=== PATIENT | female | born 1945 | race Hispanic/Latino ===

== ENCOUNTER 2018-04-06 06:43 | Emergency (ER) | payer OTHER ==
--- NOTE | 2018-04-06 08:05 | RAD REPORT ---
EXAM DESCRIPTION: CT - Head Brain Wo Cont - 04/06/2018 7:52 am CLINICAL HISTORY: Headache COMPARISON: March 2017 TECHNIQUE: Computed axial tomography of the head was obtained. IV contrast was not requested. Preliminary report was generated by virtual radiologic injury prior to dictation All CT scans are performed using dose optimization technique as appropriate and may include automated exposure control or mA/KV adjustment according to patient size. FINDINGS: An intracranial bleed is not seen . The ventricles are normal in caliber. No extra-axial fluid collection is noted. Fluid within the sinuses/ mastoids is not seen. IMPRESSION: No acute intracranial abnormality is seen. If patient's symptoms persist MRI of the bra in would be recommended.
--- NOTE | 2018-04-06 08:22 | ER ---
Nurse's Notes [facility] Name: Priyanka Tinoco Age: 72 yrs Sex: Female : 1945 Arrival Date: 04/06/2018 Time: 06:46 Bed 19 Private MD: Diagnosis: Chronic pharyngitis;Headache;Viral infection, unspecified Presentation: 04/06 07:18 Presenting complaint: Patient states: sore throat, kaley. ear pain, and sinus headache em for about 2 weeks, finished amoxicillin on but today is worse. Transition of care: patient was not received from another setting of care. Onset of symptoms was March 21, 2018. Risk Assessment: Do you want to hurt yourself or someone else? Patient reports no desire to harm self or others. Initial Sepsis Screen: Does the patient meet any 2 criteria? No. Patient's initial sepsis screen is negative. Does the patient have a suspected source of infection? No. Patient's initial sepsis screen is negative. Care prior to arrival: None. 07:18 Method Of Arrival: Ambulatory em 07:18 Acuity: ANA MARIA 4 hb Triage Assessment: 07:20 General: Appears in no apparent distress. uncomfortable, Behavior is calm, cooperative. em Pain: Complains of pain in throat, kaley. ears, head. EENT: Nares are clear Oral mucosa is moist. Throat is clear is pink. Historical: - Allergies: 07:20 Reglan; em 07:20 Iodinated Contrast Media - IV Dye; em - PMHx: 07:20 Hypertension; acid reflux; Anxiety; Arthritis; Migraines; em - PSHx: 07:20 Cholecystectomy; Hernia repair; em - Immunization history:: Adult Immunizations up to date. - Social history:: Smoking status: Patient/guardian denies using tobacco. - Ebola Screening: : Patient negative for fever greater than or equal to 101.5 degrees Fahrenheit, and additional compatible Ebola Virus Disease symptoms Patient denies exposure to infectious person Patient denies travel to an Ebola-affected area in the 21 days before illness onset No symptoms or risks identified at this time. Screenin:22 Abuse screen: Denies threats or abuse. Nutritional screening: No deficits noted. em Tuberculosis screening: No symptoms or risk factors identified. Fall Risk None identified. Assessment: 07:20 General: Appears in no apparent distress. uncomfortable, Behavior is calm, cooperative, em Denies fever. Pain: Complains of pain in head, kaley. ears, throat. Neuro: Level of Consciousness is awake, alert, obeys commands, Oriented to person, place, time, situation, Reports headache Denies weakness blurred vision dizziness. Cardiovascular: Denies chest pain, Heart tones S1 S2 present Capillary refill < 3 seconds Patient's skin is warm and dry. Respiratory: Airway is patent Respiratory effort is even, unlabored, Respiratory pattern is regular, symmetrical, Breath sounds are clear bilaterally. Denies cough, shortness of breath. GI: Abdomen is round non-distended, Patient currently denies nausea, vomiting. : No signs and/or symptoms were reported regarding the genitourinary system. EENT: Nares are clear Oral mucosa is moist. Throat is clear is pink. Derm: Skin is intact, Skin is pink, warm \T\ dry. Musculoskeletal: Capillary refill < 3 seconds, Range of motion: intact in all extremities. 07:25 Reassessment: I agree with previous assessment. hb 07:46 Reassessment: Patient appears in no apparent distress at this time. pt wheeled to CT em dept. via wheelchair. 08:00 Reassessment: Patient appears in no apparent distress at this time. Patient and/or em family updated on plan of care and expected duration. Pain level reassessed. Patient is alert, oriented x 3, equal unlabored respirations, skin warm/dry/pink. Vital Signs: 07:20 BP 128 / 81; Pulse 58; Resp 16; Temp 98.9(O); Pulse Ox 97% on R/A; Weight 89.81 kg; em Height 4 ft. 11 in. (149.86 cm); Pain 8/10; 08:00 BP 131 / 61; Pulse 52; Resp 17; Pulse Ox 100% on R/A; em 07:20 Body Mass Index 39.99 (89.81 kg, 149.86 cm) em ED Course: 06:46 Patient arrived in ED. al2 07:09 Pablo Dupont LVN is Primary Nurse. em 07:09 Pete Walls MD is Attending Physician. kdr 07:20 Arm band placed on. em 07:22 Patient has correct armband on for positive identification. Bed in low position. Call em light in reach. Adult w/ patient. 07:36 Triage completed. 07:52 CT Head Brain wo Cont In Process Unspecified. EDMS 08:32 No provider procedures requiring assistance completed. Patient did not have IV access em during this emergency room visit. Administered Medications: 08:32 Drug: traMADol 50 mg Route: PO; em 08:32 Follow up: Response: Medication administered at discharge. em Outcome: 08:21 Discharge ordered by . kdr 08:32 Discharged to home ambulatory, with family. em 08:32 Condition: good 08:32 Discharge instructions given to patient, family, Instructed on discharge instructions, follow up and referral plans. medication usage, Demonstrated understanding of instructions, follow-up care, medications, Prescriptions given X 1. 08:36 Patient left the ED. em Signatures: Dispatcher [employer] EDMS Pete Walls MD MD kdr Pablo Dupont, VALUATION MANAGER VALUATION MANAGER em Nevin Vargas, RN RN haris Ambrocio, Sofy martell2
--- NOTE | 2018-04-06 08:22 | EDPHYS ---
Physician Documentation [facility] Name: Priyanka Tinoco Age: 72 yrs Sex: Female : 1945 Arrival Date: 04/06/2018 Time: 06:46 Bed 19 Private MD: ED Physician Pete Walls HPI: 04/06 07:19 This 72 yrs old Female presents to ER via Ambulatory with complaints of Sore kdr Throat, Headache, Ear Pain. 07:19 The patient presents with sore throat, dysphagia, of both solids and liquids. The kdr patient describes throat pain as intermittent, raw. Onset: The symptoms/episode began/occurred gradually, 2 week(s) ago. Severity of symptoms: At their worst the symptoms were mild, in the emergency department the symptoms are unchanged. Modifying factors: The symptoms are alleviated by nothing, the symptoms are aggravated by fluids, foods, swallowing. Associated signs and symptoms: Pertinent positives: cough, earache, headache, Pertinent negatives chest pain, chills, fever, rhinorrhea, vomiting. The patient has not experienced similar symptoms in the past. The patient has been recently seen by a physician: Dr. Sexton The patient has been on Amoxicillin for two weeks - no longer - without improvement. Historical: - Allergies: 07:20 Reglan; em 07:20 Iodinated Contrast Media - IV Dye; em - PMHx: 07:20 Hypertension; acid reflux; Anxiety; Arthritis; Migraines; em - PSHx: 07:20 Cholecystectomy; Hernia repair; em - Immunization history:: Adult Immunizations up to date. - Social history:: Smoking status: Patient/guardian denies using tobacco. - Ebola Screening: : Patient negative for fever greater than or equal to 101.5 degrees Fahrenheit, and additional compatible Ebola Virus Disease symptoms Patient denies exposure to infectious person Patient denies travel to an Ebola-affected area in the 21 days before illness onset No symptoms or risks identified at this time. ROS: 07:19 Constitutional: Negative for fever, chills, and weight loss, Eyes: Negative for injury, kdr pain, redness, and discharge, Neck: Negative for injury, pain, and swelling, Cardiovascular: Negative for chest pain, palpitations, and edema, Abdomen/GI: Negative for abdominal pain, nausea, vomiting, diarrhea, and constipation, Back: Negative for injury and pain, : Negative for injury, bleeding, discharge, and swelling, MS/Extremity: Negative for injury and deformity, Skin: Negative for injury, rash, and discoloration, Neuro: Negative for headache, weakness, numbness, tingling, and seizure activity. Psych: Negative for depression, anxiety, suicide ideation, homicidal ideation, and hallucinations, Allergy/Immunology: Negative for hives, rash, and allergies, Endocrine: Negative for neck swelling, polydipsia, polyuria, polyphagia, and marked weight changes, Hematologic/Lymphatic: Negative for swollen nodes, abnormal bleeding, and unusual bruising. 07:19 ENT: Positive for ear pain, Feels like I have water in my left ear, Negative for injury or acute deformity, Gum pain hearing loss, tinnitus, nasal discharge, rhinorrhea. 07:19 Respiratory: Positive for cough, with white sputum, Negative for dyspnea on exertion, hemoptysis, orthopnea, pleurisy, shortness of breath, wheezing. Exam: 07:19 Constitutional: This is a well developed, well nourished patient who is awake, alert, kdr and in no acute distress. Head/Face: Normocephalic, atraumatic. Eyes: Pupils equal round and reactive to light, extra-ocular motions intact. Lids and lashes normal. Conjunctiva and sclera are non-icteric and not injected. Cornea within normal limits. Periorbital areas with no swelling, redness, or edema. ENT: Nares patent. No nasal discharge, no septal abnormalities noted. Tympanic membranes are normal and external auditory canals are clear. Oropharynx with no redness, swelling, or masses, exudates, or evidence of obstruction, uvula midline. Mucous membranes moist. Neck: Trachea midline, no thyromegaly or masses palpated, and no cervical lymphadenopathy. Supple, full range of motion without nuchal rigidity, or vertebral point tenderness. No Meningismus. Chest/axilla: Normal chest wall appearance and motion. Nontender with no deformity. No lesions are appreciated. Cardiovascular: Regular rate and rhythm with a normal S1 and S2. No gallops, murmurs, or rubs. Normal PMI, no JVD. No pulse deficits. Respiratory: Lungs have equal breath sounds bilaterally, clear to auscultation and percussion. No rales, rhonchi or wheezes noted. No increased work of breathing, no retractions or nasal flaring. Abdomen/GI: Soft, non-tender, with normal bowel sounds. No distension or tympany. No guarding or rebound. No evidence of tenderness throughout. Back: No spinal tenderness. No costovertebral tenderness. Full range of motion. Skin: Warm, dry with normal turgor. Normal color with no rashes, no lesions, and no evidence of cellulitis. MS/ Extremity: Pulses equal, no cyanosis. Neurovascular intact. Full, normal range of motion. Neuro: Awake and alert, GCS 15, oriented to person, place, time, and situation. Cranial nerves II-XII grossly intact. Motor strength 5/5 in all extremities. Sensory grossly intact. Cerebellar exam normal. Normal gait. Psych: Awake, alert, with orientation to person, place and time. Behavior, mood, and affect are within normal limits. Vital Signs: 07:20 BP 128 / 81; Pulse 58; Resp 16; Temp 98.9(O); Pulse Ox 97% on R/A; Weight 89.81 kg; em Height 4 ft. 11 in. (149.86 cm); Pain 8/10; 08:00 BP 131 / 61; Pulse 52; Resp 17; Pulse Ox 100% on R/A; em 07:20 Body Mass Index 39.99 (89.81 kg, 149.86 cm) em MDM: 07:19 Data reviewed: vital signs, nurses notes. kdr 08:21 Patient medically screened. kdr 04/06 07:19 Order name: Flu; Complete Time: 08:20 kdr 04/06 07:19 Order name: Strep; Complete Time: 08:20 kdr 04/06 07:24 Order name: CT Head Brain wo Cont; Complete Time: 08:20 kdr 04/06 08:07 Order name: Throat Culture EDMS Administered Medications: 08:32 Drug: traMADol 50 mg Route: PO; em 08:32 Follow up: Response: Medication administered at discharge. em Disposition: 04/06/18 08:21 Discharged to Home. Impression: Chronic pharyngitis, Headache, Viral infection, unspecified. - Condition is Stable. - Discharge Instructions: General Headache Without Cause, Pharyngitis, [id number], Viral Respiratory Infection, [id number]. - Prescriptions for Tramadol 50 mg Oral Tablet - take 1 tablet by ORAL route every 8 hours as needed; 12 tablet. - Medication Reconciliation Form, Thank You Letter form. - Follow up: Private Physician; When: 2 - 3 days; Reason: If symptoms return, Further diagnostic work-up, Recheck today's complaints, Continuance of care, Re-evaluation by your physician. - Problem is an ongoing problem. - Symptoms are unchanged. Signatures: Dispatcher [employer] Pete Tan MD MD kdr Munoz, Edgar, JEWEL BEARING BROACHER JEWEL BEARING BROACHER em Corrections: (The following items were deleted from the chart) 08:36 08:21 04/06/2018 08:21 Discharged to Home. Impression: Chronic pharyngitis; Headache; em Viral infection, unspecified. Condition is Stable. Forms are Medication Reconciliation Form, Thank You Letter, Antibiotic Education, Prescription Opioid Use. Follow up: Private Physician; When: 2 - 3 days; Reason: If symptoms return, Further diagnostic work-up, Recheck today's complaints, Continuance of care, Re-evaluation by your physician. Problem is an ongoing problem. Symptoms are unchanged. kdr
[2018-04-06] MEDS ORDERED: TRAMADOL HCL 50 MG TAB ONE (08:34)
[2018-04-06 08:40] VITALS: TEMP 98.9
[2018-04-06 08:41] VITALS: BP 131/61; O2SAT 100
== END 2018-04-06 08:36 | disposition home or self-care (01) ==
LOC: ER 06:43
DX: J31.2 Chronic pharyngitis (principal); B34.9 Viral infection, unspecified; I10 Essential (primary) hypertension; Z88.8 Allergy status to other drugs, medicaments and biological substances; Z91.041 Radiographic dye allergy status
CPT/HCPCS: 70450; 87070; 87081; 87804; 99283

== ENCOUNTER 2018-05-23 10:18 | Emergency (ER) | payer OTHER ==
[2018-05-23] MEDS ORDERED: LEVALBUTEROL 1.25 MG/3 ML NEB ONE (11:15)
[2018-05-23 11:23] LABS: Absolute Lymphocytes (CBC) 1.4 K/uL (0.7-4.9); Absolute Monocytes 0.4 K/uL (0.1-1.3); Absolute Neutrophil 4.3 K/uL (1.8-8.0); Basophils % 1.1 % (0-1.3); Eosinophils % 0.6 % (0-4.4); Hematocrit 48.3 % (36.0-45.0); Lymphocytes % 22.7 % (15.3-44.8); RBC Red Blood Cell Count 5.57 M/uL (3.86-4.86)
[2018-05-23 11:28] LABS: Protime INR 1.02
[2018-05-23 11:35] LABS: ALT/SGPT 33 U/L (12-78); AST/SGOT 28 U/L (15-37); Albumin 4.1 g/dL (3.4-5.0); Alkaline Phosphatase 108 U/L (45-117); BUN Blood Urea Nitrogen 17 mg/dL (7-18); Bicarbonate 23 mmol/L (21-32); Bilirubin Direct 0.1 mg/dL (0-0.2); Bilirubin Total 0.5 mg/dL (0.2-1.0); Glucose Level 93 mg/dL (74-106); Magnesium 2.3 mg/dL (1.8-2.4); NT PRO-BNP 86 pg/mL (<125); Potassium 4.5 mmol/L (3.5-5.1); Protein, Total 8.3 g/dL (6.4-8.2); Sodium Level 130 mmol/L (136-145); Troponin (Emerg Dept Use Only) < 0.02 ng/mL (0.0-0.045)
[2018-05-23 12:54] LABS: Urine Blood TRACE (NEG); Urine Glucose NEGATIVE (NEG); Urine Protein NEGATIVE (NEG)
--- NOTE | 2018-05-23 12:59 | RAD REPORT ---
EXAM DESCRIPTION: Tawnya Denton (2 Views)05/23/2018 12:52 pm CLINICAL HISTORY: Chest pain COMPARISON: 2017 FINDINGS: The lungs appear clear of acute infiltrate. The heart is normal size IMPRESSION: No acute abnormalities displayed
--- NOTE | 2018-05-23 13:39 | EDPHYS ---
Physician Documentation [facility] Name: Priyanka Tinoco Age: 72 yrs Sex: Female : 1945 Arrival Date: 05/23/2018 Time: 10:19 Bed 2 Private MD: Lisa Nielson ED Physician Pete Walls HPI: 05/23 10:50 This 72 yrs old Female presents to ER via Wheelchair with complaints of jmm Breathing Difficulty. 10:50 The patient has shortness of breath at rest. Onset: The symptoms/episode began/occurred jmm gradually, 1 week(s) ago. Duration: The symptoms are intermittent. This is a 72 year old female with a history of HTN, anxiety, migraine headaches that presents to the ED with 1 week of cough, congestion, sore throat, ear ache. Patient is currently taking clarithromycin with no relief of symptoms. Patient complains of chest pain with cough. . Historical: - Allergies: 10:28 Iodinated Contrast Media - IV Dye; aj1 10:28 Reglan; aj1 - Home Meds: 10:28 amlodipine 5 mg tab 1 tab once daily [Active]; buspirone 15 mg Oral tab take 1 1/2 tabs aj1 twice a day [Active]; lisinopril 10 mg Oral tab 1 tab once daily [Active]; naproxen 500 mg Oral tab 1 tab 2 times per day [Active]; pantoprazole 40 mg Oral TbEC 1 tab once daily [Active]; topiramate 25 mg Oral CSpX 3 cap at bedtime [Active]; Zofran Oral [Active]; clarithromycin 500 mg Oral tab 1 tab every 12 hours [Active]; gabapentin oral oral [Active]; 10:32 Cipro 500 mg Oral tab 1 tab 2 times per day [Active]; Flagyl 500 mg Oral tab 1 tab 3 tw2 times per day [Active]; - PMHx: 10:28 acid reflux; Anxiety; Arthritis; Hypertension; Migraines; aj1 - PSHx: 10:32 Cholecystectomy; Hernia repair; tw2 - Immunization history:: Flu vaccine is up to date. - Social history:: Smoking status: Patient/guardian denies using tobacco. - Ebola Screening: : Patient denies travel to an Ebola-affected area in the 21 days before illness onset. ROS: 10:50 Constitutional: Negative for fever, chills, and weight loss. [facility] 10[facility]50 Cardiovascular: Positive for chest pain. 10:50 Respiratory: Positive for cough. 10:50 Neuro: Positive for headache. 10:50 All other systems are negative. Exam: 10:50 Constitutional: This is a well developed, well nourished patient who is awake, alert, jmm and in no acute distress. Head/Face: atraumatic. Eyes: EOMI, no conjunctival erythema appreciated ENT: Moist Mucus Membranes Neck: Trachea midline, Supple Chest/axilla: Normal chest wall appearance and motion. 10:50 Abdomen/GI: Non distended, soft Back: Normal ROM Skin: General appearance color normal MS/ Extremity: Moves all extremities, no obvious deformities appreciated, no edema noted to the lower extremities Neuro: Awake and alert, normal gait Psych: Behavior is normal, Mood is normal, Patient is cooperative and pleasant 10:50 Cardiovascular: Rate: normal, Rhythm: regular, Pulses: no pulse deficits are appreciated. 10:50 Respiratory: the patient does not display signs of respiratory distress, Respirations: normal, Breath sounds: are clear throughout. Vital Signs: 10:28 BP 111 / 91; Pulse 60; Resp 18; Temp 97.0; Pulse Ox 100% on R/A; Weight 86.18 kg; aj1 Height 4 ft. 11 in. (149.86 cm) (R); Pain 10/10; 11:40 BP 142 / 68; Pulse 74; Resp 17; Pulse Ox 96% on R/A; tw2 12:40 BP 128 / 89; Pulse 63; Resp 17; Pulse Ox 97% on R/A; tw2 13:57 BP 112 / 59; Pulse 70; Resp 17; Pulse Ox 97% on R/A; tw2 10:28 Body Mass Index 38.37 (86.18 kg, 149.86 cm) aj1 MDM: 10:37 [facility] screened. [facility] 13:33 Data reviewed: vital signs, nurses notes, lab test result(s), EKG, radiologic studies, [facility] plain films. 13:41 Counseling: I had a detailed discussion with the patient and/or guardian regarding: the [facility] historical points, exam findings, and any diagnostic results supporting the discharge/admit diagnosis, lab results, radiology results, the need for outpatient follow up, to return to the emergency department if symptoms worsen or persist or if there are any questions or concerns that arise at home. 13:41 ED course: Symptoms relieved in the ED with beta agonist. Labs and imaging [facility]. Patient is alert, non toxic in appearance, and shows no signs of resp distress in the ED. Patient advised to follow up with pcp. Given strict return precautions. Chest pain appears most likely chest wall in nature. I do not currently suspect ACS at this time. . 05/23 10:45 Order name: Urine Dipstick--Ancillary (enter results); Complete Time: 13:01 05/23 10:46 Order name: Basic Metabolic Panel; Complete Time: 11:48 [facility] 05/23 10:46 Order name: CBC with Diff; Complete Time: 11:48 [facility] 05/23 10:46 Order name: LFT's; Complete Time: 11:48 [facility] 05/23 10:46 Order name: Magnesium; Complete Time: 11:48 [facility] 05/23 10:46 Order name: NT PRO-BNP; Complete Time: 11:48 [facility] 05/23 10:46 Order name: PT-INR; Complete Time: 11:48 [facility] 05/23 10:46 Order name: Troponin (emerg Dept Use Only); Complete Time: 11:48 [facility] 05/23 10:46 Order name: Procalcitonin; Complete Time: 12:03 [facility] 05/23 10:46 Order name: Lactate; Complete Time: 11:48 [facility] 05/23 10:46 Order name: Influenza Screen (a \T\ B); Complete Time: 11:48 [facility] 05/23 10:46 Order name: Chest Pa And Lat (2 Views) XRAY; Complete Time: 13:01 [facility] 05/23 10:46 Order name: EKG; Complete Time: 10:48 [facility] 05/23 10:46 Order name: Cardiac monitoring; Complete Time: 11:17 [facility] 05/23 10:46 Order name: EKG - Nurse/Tech; Complete Time: 11:17 [facility] 05/23 10:46 Order name: Labs collected and sent; Complete Time: 11:17 [facility] 05/23 10:46 Order name: O2 Per Protocol; Complete Time: 11:18 [facility] 05/23 10:46 Order name: O2 Sat Monitoring; Complete Time: 11:17 [facility] Administered Medications: 11:12 Drug: Xopenex (3) 1.25 mg Route: Inhalation; tw2 13:34 Drug: Tylenol 650 mg Route: PO; sg 13:41 Follow up: Response: No adverse reaction sg 13:35 Not Given (Duplicate Order): Decadron 10 mg IM once sg 13:41 Drug: Decadron 10 mg {Note: PO in juice.} Route: IM; Site: Other; sg 13:59 Follow up: Response: No adverse reaction tw2 Disposition: 05/23/18 13:38 Discharged to Home. Impression: Acute bronchitis. - Condition is Stable. - Discharge Instructions: Acute Bronchitis, Adult. - Prescriptions for Albuterol Sulfate 90 mcg/actuation - inhale 1-2 puff by INHALATION route every 4-6 hours; 1 Inhaler. - Medication Reconciliation Form, Thank You Letter, Antibiotic Education, Prescription Opioid Use form. - Follow up: Lisa Nielson MD; When: 1 - 2 days; Reason: Recheck today's complaints, Continuance of care, Re-evaluation by your physician. Addendum: 06/03/2018 07:24 Co-signature as Attending Physician, Pete Walls MD I agree with the assessment and k dr plan of care. Signatures: Dispatcher [employer] EDMS Shania Bernal RN RN aj1 John Kwon RN RN sg Rittger, Kevin, MD MD [facility] Geoff Retana PA PA jmm Wise, Tara RN RN tw2 Corrections: (The following items were deleted from the chart) 05/23 14:00 13:38 05/23/2018 13:38 Discharged to Home. Impression: Acute bronchitis. Condition is tw2 Stable. Forms are Medication Reconciliation Form, Thank You Letter, Antibiotic Education, Prescription Opioid Use. Follow up: Lisa Nielson; When: 1 - 2 days; Reason: Recheck today's complaints, Continuance of care, Re-evaluation by your physician. jose
--- NOTE | 2018-05-23 13:39 | ER ---
Nurse's Notes [facility] Name: Priyanka Tinoco Age: 72 yrs Sex: Female : 1945 Arrival Date: 05/23/2018 Time: 10:19 Bed 2 Private MD: Lisa Nielson Diagnosis: Acute bronchitis Presentation: 05/23 10:24 Presenting complaint: Patient states: Chest pain, back pain, shortness of breath, aj1 cough, congestion, bilateral ear pain, and headache. Reports the chest pain started this morning, but the other pains she had had for the past week. Patient reports that she is taking clarithromycin for strep throat and a URI. Transition of care: patient was not received from another setting of care. Onset of symptoms was May 23, 2018. Risk Assessment: Do you want to hurt yourself or someone else? Patient reports no desire to harm self or others. Initial Sepsis Screen: Does the patient meet any 2 criteria? No. Patient's initial sepsis screen is negative. Does the patient have a suspected source of infection? Yes: Productive cough/pneumonia. Care prior to arrival: None. 10:24 Method Of Arrival: Wheelchair aj1 10:24 Acuity: ANA MARIA 3 aj1 Triage Assessment: 10:28 General: Appears in no apparent distress. uncomfortable, Behavior is calm, cooperative, aj1 appropriate for age. Pain: Complains of pain in face, right ear, left ear, back and chest. Pain: Pain currently is 10 out of 10 on a pain scale. Neuro: Level of Consciousness is awake, alert, obeys commands. Cardiovascular: Patient's skin is warm and dry. Respiratory: Reports shortness of breath Airway is patent Respiratory effort is even, unlabored, Respiratory pattern is regular, symmetrical, Onset: The symptoms/episode began/occurred today. 11:24 Respiratory: the patient has mild shortness of breath. tw2 Historical: - Allergies: 10:28 Iodinated Contrast Media - IV Dye; aj1 10:28 Reglan; aj1 - Home Meds: 10:28 amlodipine 5 mg tab 1 tab once daily [Active]; buspirone 15 mg Oral tab take 1 1/2 tabs aj1 twice a day [Active]; lisinopril 10 mg Oral tab 1 tab once daily [Active]; naproxen 500 mg Oral tab 1 tab 2 times per day [Active]; pantoprazole 40 mg Oral TbEC 1 tab once daily [Active]; topiramate 25 mg Oral CSpX 3 cap at bedtime [Active]; Zofran Oral [Active]; clarithromycin 500 mg Oral tab 1 tab every 12 hours [Active]; gabapentin oral oral [Active]; 10:32 Cipro 500 mg Oral tab 1 tab 2 times per day [Active]; Flagyl 500 mg Oral tab 1 tab 3 tw2 times per day [Active]; - PMHx: 10:28 acid reflux; Anxiety; Arthritis; Hypertension; Migraines; aj1 - PSHx: 10:32 Cholecystectomy; Hernia repair; tw2 - Immunization history:: Flu vaccine is up to date. - Social history:: Smoking status: Patient/guardian denies using tobacco. - Ebola Screening: : Patient denies travel to an Ebola-affected area in the 21 days before illness onset. Screenin:24 Abuse screen: Denies threats or abuse. Nutritional screening: No deficits noted. tw2 Tuberculosis screening: No symptoms or risk factors identified. Fall Risk None identified. Assessment: 10:35 General: Appears in no apparent distress. obese, Behavior is calm, cooperative, tw2 appropriate for age. Pain: Denies pain. Neuro: Level of Consciousness is awake, alert, obeys commands, Oriented to person, place, time, situation. Cardiovascular: Heart tones S1 S2 Capillary refill < 3 seconds Patient's skin is warm and dry. Rhythm is regular. Respiratory: Reports shortness of breath cough that is Airway is patent Respiratory effort is even, unlabored, Respiratory pattern is regular, symmetrical, Breath sounds are clear bilaterally. GI: No signs and/or symptoms were reported involving the gastrointestinal system. Abdomen is round non-distended, obese, Bowel sounds present X 4 quads. : No signs and/or symptoms were reported regarding the genitourinary system. EENT: Reports nasal congestion nasal discharge pain in left ear and right ear. Derm: No signs and/or symptoms reported regarding the dermatologic system. Musculoskeletal: Range of motion:. 11:40 Reassessment: Patient appears in no apparent distress at this time. Patient and/or tw2 family updated on plan of care and expected duration. Pain level reassessed. Patient is alert, oriented x 3, equal unlabored respirations, skin warm/dry/pink. 12:07 Reassessment: Pt ambulated to bathroom with steady gait with assistance from family. hb Assisted back to bed, bed locked in low position, call light within reach. 12:40 Reassessment: Patient appears in no apparent distress at this time. Patient and/or tw2 family updated on plan of care and expected duration. Pain level reassessed. Patient is alert, oriented x 3, equal unlabored respirations, skin warm/dry/pink. 13:58 Reassessment: Patient appears in no apparent distress at this time. Patient and/or tw2 family updated on plan of care and expected duration. Pain level reassessed. Patient is alert, oriented x 3, equal unlabored respirations, skin warm/dry/pink. Patient states feeling better. Vital Signs: 10:28 BP 111 / 91; Pulse 60; Resp 18; Temp 97.0; Pulse Ox 100% on R/A; Weight 86.18 kg; aj1 Height 4 ft. 11 in. (149.86 cm) (R); Pain 10/10; 11:40 BP 142 / 68; Pulse 74; Resp 17; Pulse Ox 96% on R/A; tw2 12:40 BP 128 / 89; Pulse 63; Resp 17; Pulse Ox 97% on R/A; tw2 13:57 BP 112 / 59; Pulse 70; Resp 17; Pulse Ox 97% on R/A; tw2 10:28 Body Mass Index 38.37 (86.18 kg, 149.86 cm) aj1 ED Course: 10:19 Patient arrived in ED. sb2 10:22 Lisa Nielson MD is Private Physician. sb2 10:27 Triage completed. aj1 10:28 Arm band placed on Patient placed in an exam room. aj1 10:30 Placed in gown. Bed in low position. Adult w/ patient. monitoring manager on. Pulse ox on. tw2 NIBP on. Warm blanket given. 10:31 Jennifer Palacios RN is Primary Nurse. tw2 10:32 Geoff Retana PA is PHCP. [facility] 10:32 Pete Walls MD is Attending Physician. m 10:53 EKG done, by respiratory therapy technician. reviewed by Geoff ROSALES. at1 11:18 Basic Metabolic Panel Sent. ag 11:18 CBC with Diff Sent. ag 11:18 LFT's Sent. ag 11:18 Magnesium Sent. ag 11:18 NT PRO-BNP Sent. ag 11:18 PT-INR Sent. ag 11:18 Lactate Sent. ag 11:18 Procalcitonin Sent. ag 11:18 Influenza Screen (a \T\ B) Sent. ag 11:23 Missed attempt(s): 22 gauge in left antecubital area. Bleeding controlled, band aid ag applied, catheter tip intact. 11:23 Missed attempt(s): 22 gauge in right antecubital area. blood collected and sent. ag Bleeding controlled, band aid applied, catheter tip intact. 12:53 Chest Pa And Lat (2 Views) XRAY In Process Unspecified. EDMS 13:38 Lisa Nielson MD is Referral Physician. [facility] 13:58 No provider procedures requiring assistance completed. Patient did not have IV access tw2 during this emergency room visit. Administered Medications: 11:12 Drug: Xopenex (3) 1.25 mg Route: Inhalation; tw2 13:34 Drug: Tylenol 650 mg Route: PO; sg 13:41 Follow up: Response: No adverse reaction sg 13:35 Not Given (Duplicate Order): Decadron 10 mg IM once sg 13:41 Drug: Decadron 10 mg {Note: PO in juice.} Route: IM; Site: Other; sg 13:59 Follow up: Response: No adverse reaction tw2 Outcome: 13:38 Discharge ordered by MD. [facility] 13:59 Discharged to home via wheelchair, with family. tw2 13:59 Condition: stable 13:59 Discharge instructions given to patient, family, Instructed on discharge instructions, follow up and referral plans. medication usage, Demonstrated understanding of instructions, follow-up care, medications, Prescriptions given X 1. 14:00 Patient left the ED. tw2 Signatures: Dispatcher [employer] EDMS Shania Bernal RN RN aj1 John Kwon RN RN Geoff Trujillo PA PA Gifty Foster, psych assistant EKG Tat1 Arsh, Samantha ag Nevin Vargas RN RN hb Wise, Tara, RN RN tw2 Zakia Holloway sb2 Corrections: (The following items were deleted from the chart) 10:27 10:24 Presenting complaint: Patient states: Chest pain, back pain, shortness of breath, aj1 bilateral ear pain, and headache. Reports the chest pain started this morning, but the other pains she had had for the past week. Patient reports that she is taking clarithromycin for strep throat and a URI. aj1
[2018-05-23] MEDS ORDERED: ACETAMINOPHEN 325 MG TABLET ONE (13:41)
[2018-05-23] MEDS ORDERED: DEXAMETHASONE 10 MG/ML VIAL ONE (13:46)
[2018-05-23 14:05] VITALS: TEMP 97
[2018-05-23 14:08] VITALS: O2SAT 97
[2018-05-23 14:10] VITALS: BP 112/59
--- NOTE | 2018-05-24 07:02 | EKG ---
Test Date: 2018-05-23 Test Time: 10:42:53 Civil Structural Engineer: ABIMAEL MEASUREMENT RESULTS: Intervals: Rate: 63 MO: 140 QRSD: 84 QT: 424 QTc: 433 [place]: P: 27 MO: 140 QRS: -23 T: 67 INTERPRETIVE STATEMENTS: Normal sinus rhythm with sinus arrhythmia Normal ECG Compared to ECG 03/18/2017 06:50:14 Sinus bradycardia no longer present T-wave abnormality no longer present Electronically Signed On 05-24-18 06:53:04 HR BUSINESS PARTNER CONSULTANT by Felipe Ribera
== END 2018-05-23 14:00 | disposition home or self-care (01) ==
LOC: ER 10:18
DX: J20.9 Acute bronchitis, unspecified (principal); I10 Essential (primary) hypertension; F41.9 Anxiety disorder, unspecified; Z88.8 Allergy status to other drugs, medicaments and biological substances; Z91.041 Radiographic dye allergy status
CPT/HCPCS: 36415; 71046; 80048; 80076; 81003; 83605; 83735; 83880; 84145; 84484; 85025; 85610; 87804 ×2; 93005; 96372; 99285; J1100

== ENCOUNTER 2018-05-29 09:40 | Emergency (ER) | payer OTHER ==
--- NOTE | 2018-05-29 12:43 | ER ---
Nurse's Notes [facility] Name: Priyanka Tinoco Age: 72 yrs Sex: Female : 1945 Arrival Date: 05/29/2018 Time: 09:43 Bed 25 Private MD: Lisa Nielson Diagnosis: Allergic rhinitis, unspecified Presentation: 05/29 10:24 Presenting complaint: Patient states: "I have a bad headache, pressure in my temples aj1 and in my ears, a cough, and congestion. My ears are all clogged up. I can't breathe right" Denies fever. Reports that she has been feeling this way for the past week. Patient has not followed up with her PHCP since being seen here. Transition of care: patient was not received from another setting of care. Onset of symptoms was May 2018. Risk Assessment: Do you want to hurt yourself or someone else? Patient reports no desire to harm self or others. Initial Sepsis Screen: Does the patient meet any 2 criteria? No. Patient's initial sepsis screen is negative. Does the patient have a suspected source of infection? Yes: Productive cough/pneumonia. Care prior to arrival: None. 10:24 Method Of Arrival: Wheelchair aj1 10:24 Acuity: ANA MARIA 3 aj1 Triage Assessment: 10:26 General: Appears in no apparent distress. uncomfortable, Behavior is calm, cooperative, aj1 appropriate for age. Pain: Complains of pain in right sikh, left sikh, left ear and right ear Pain currently is 9 out of 10 on a pain scale. EENT: Reports ear pain, headache, congestion. Neuro: Level of Consciousness is awake, alert, obeys commands. Cardiovascular: Patient's skin is warm and dry. Respiratory: Airway is patent Respiratory effort is even, unlabored, Respiratory pattern is regular, symmetrical. Historical: - Allergies: 10:26 Iodinated Contrast Media - IV Dye; aj1 10:26 Reglan; aj1 - PMHx: 10:26 acid reflux; Anxiety; Arthritis; Hypertension; Migraines; aj1 - Immunization history:: Adult Immunizations unknown. - Social history:: Smoking status: unknown. - Ebola Screening: : Patient negative for fever greater than or equal to 101.5 degrees Fahrenheit, and additional compatible Ebola Virus Disease symptoms Patient denies exposure to infectious person Patient denies travel to an Ebola-affected area in the 21 days before illness onset No symptoms or risks identified at this time. Screenin:00 Abuse screen: Denies threats or abuse. Nutritional screening: No deficits noted. em Tuberculosis screening: No symptoms or risk factors identified. Fall Risk None identified. Assessment: 11:10 General: Appears in no apparent distress. Behavior is calm, cooperative. Neuro: Level iw of Consciousness is awake, alert, obeys commands, Oriented to person. Cardiovascular: Patient's skin is warm and dry. Respiratory: Respiratory effort is even, unlabored, Respiratory pattern is regular. Derm: Skin is intact, is healthy with good turgor. Musculoskeletal: Range of motion: intact in all extremities. 12:00 Reassessment: Patient appears in no apparent distress at this time. Patient and/or em family updated on plan of care and expected duration. Pain level reassessed. Patient is alert, oriented x 3, equal unlabored respirations, skin warm/dry/pink. Vital Signs: 10:26 BP 116 / 67; Pulse 60; Resp 18; Temp 97.8; Pulse Ox 96% on R/A; Weight 85.28 kg (R); aj1 Height 4 ft. 11 in. (149.86 cm) (R); 12:00 BP 124 / 71; Pulse 64; Resp 18; Pulse Ox 99% on R/A; em 10:26 Body Mass Index 37.97 (85.28 kg, 149.86 cm) aj1 ED Course: 09:43 Patient arrived in ED. mr 09:43 Lisa Nielson MD is Private Physician. mr 10:26 Triage completed. aj1 10:26 Arm band placed on Patient placed in waiting room, Patient notified of wait time. aj1 11:03 Yari Macias, ISSA is Primary Nurse. iw 11:11 Bridget Sierra FNP-C is PHCP. kb 11:11 Pete Walls MD is Attending Physician. kb 12:00 Patient has correct armband on for positive identification. Bed in low position. Call em light in reach. Adult w/ patient. 12:51 No provider procedures requiring assistance completed. Patient did not have IV access iw during this emergency room visit. Administered Medications: No medications were administered Outcome: 12:42 Discharge ordered by . kb 12:56 Discharged to home via wheelchair, with family. em 12:56 Condition: good 12:56 Discharge instructions given to patient, family, Instructed on discharge instructions, follow up and referral plans. Demonstrated understanding of instructions, follow-up care. 12:58 Patient left the ED. em Signatures: Bridget Sierra, UPPER TIER-C UPPER TIER-Ckb Shania Bernal RN RN aj1 Erika Barbosa mr CresencioPablo, OPERATING SYSTEMS PROGRAMMER OPERATING SYSTEMS PROGRAMMER em Yari Macias RN RN iw
--- NOTE | 2018-05-29 12:43 | EDPHYS ---
Physician Documentation [facility] Name: Priyanka Tinoco Age: 72 yrs Sex: Female : 1945 Arrival Date: 05/29/2018 Time: 09:43 Bed 25 Private MD: Lisa Nielson ED Physician Pete Walls HPI: 05/29 11:30 This 72 yrs old Female presents to ER via Wheelchair with complaints of Ear kb Pain, Headache. 11:30 The patient or guardian reports cough, that is intermittent, described as mild, with kb productive sputum. Onset: The symptoms/episode began/occurred "a long time," "on and off since December". Severity of symptoms: At their worst the symptoms were moderate, in the emergency department the symptoms are unchanged. Modifying factors: The symptoms are alleviated by nothing, the symptoms are aggravated by nothing. Associated signs and symptoms: Pertinent positives: rhinorrhea, sore throat, Pertinent negatives: chest pain, diarrhea, ear ache, fever, nausea, vomiting. The patient has experienced similar episodes in the past. The patient has been recently seen at the [facility] Emergency Department, last week, for similar complaints. Pt reports sinus and ear pressure, cough, abd and chest pain due to cough, rhinorrhea, congestion, migraine for "a long time." States she has been getting this on and off since December. Just completed a 10 day course of antibiotics for strep throat, wants to make sure it is gone while she is here today. Was seen here Sunday for same complaints, had blood work, EKG, and chest x-ray that were all normal. Was given an albuterol inhaler, but it hasn't helped. Educated on use of flonase and antihistamines for symptoms. . Historical: - Allergies: 10:26 Iodinated Contrast Media - IV Dye; aj1 10:26 Reglan; aj1 - PMHx: 10:26 acid reflux; Anxiety; Arthritis; Hypertension; Migraines; aj1 - Immunization history:: Adult Immunizations unknown. - Social history:: Smoking status: unknown. - Ebola Screening: : Patient negative for fever greater than or equal to 101.5 degrees Fahrenheit, and additional compatible Ebola Virus Disease symptoms Patient denies exposure to infectious person Patient denies travel to an Ebola-affected area in the 21 days before illness onset No symptoms or risks identified at this time. ROS: 11:30 Neck: Negative for injury, pain, and swelling, Cardiovascular: Negative for chest pain, kb palpitations, and edema, Abdomen/GI: Negative for abdominal pain, nausea, vomiting, diarrhea, and constipation, Back: Negative for injury and pain, : Negative for injury, bleeding, discharge, and swelling, MS/Extremity: Negative for injury and deformity, Skin: Negative for injury, rash, and discoloration. 11:30 Constitutional: Positive for malaise, Negative for body aches, chills, fatigue, fever, poor PO intake, weight loss. 11:30 ENT: Positive for rhinorrhea, sinus congestion. 11:30 Respiratory: Positive for cough, with clear sputum, Negative for dyspnea on exertion, hemoptysis, orthopnea, pleurisy, shortness of breath, wheezing. Exam: 11:36 Constitutional: This is a well developed, well nourished patient who is awake, alert, kb and in no acute distress. Head/Face: Normocephalic, atraumatic. Neck: Trachea midline, no thyromegaly or masses palpated, and no cervical lymphadenopathy. Supple, full range of motion without nuchal rigidity, or vertebral point tenderness. No Meningismus. Chest/axilla: Normal chest wall appearance and motion. Nontender with no deformity. No lesions are appreciated. Cardiovascular: Regular rate and rhythm with a normal S1 and S2. No gallops, murmurs, or rubs. Normal PMI, no JVD. No pulse deficits. Respiratory: Lungs have equal breath sounds bilaterally, clear to auscultation and percussion. No rales, rhonchi or wheezes noted. No increased work of breathing, no retractions or nasal flaring. Abdomen/GI: Soft, non-tender, with normal bowel sounds. No distension or tympany. No guarding or rebound. No evidence of tenderness throughout. Back: No spinal tenderness. No costovertebral tenderness. Full range of motion. Skin: Warm, dry with normal turgor. Normal color with no rashes, no lesions, and no evidence of cellulitis. MS/ Extremity: Pulses equal, no cyanosis. Neurovascular intact. Full, normal range of motion. Neuro: Awake and alert, GCS 15, oriented to person, place, time, and situation. Cranial nerves II-XII grossly intact. Motor strength 5/5 in all extremities. Sensory grossly intact. Cerebellar exam normal. Normal gait. 11:36 ENT: External ear(s): are unremarkable, Ear canal(s): are normal, TM's: are normal, Nose: is normal, Mouth: is normal, Posterior pharynx: Airway: normal, no evidence of obstruction, Uvula: normal, midline, swelling, is not appreciated, erythema, that is mild, exudate, is not appreciated, drainage noted. Vital Signs: 10:26 BP 116 / 67; Pulse 60; Resp 18; Temp 97.8; Pulse Ox 96% on R/A; Weight 85.28 kg (R); aj1 Height 4 ft. 11 in. (149.86 cm) (R); 12:00 BP 124 / 71; Pulse 64; Resp 18; Pulse Ox 99% on R/A; em 10:26 Body Mass Index 37.97 (85.28 kg, 149.86 cm) aj1 MDM: 11:11 Patient medically screened. kb 11:36 Data reviewed: vital signs, nurses notes. Data interpreted: Pulse oximetry: on room air kb is 96 %. Interpretation: normal. 11:47 Counseling: I had a detailed discussion with the patient and/or guardian regarding: the kb historical points, exam findings, and any diagnostic results supporting the discharge/admit diagnosis, lab results, the need for outpatient follow up, a family practitioner, to return to the emergency department if symptoms worsen or persist or if there are any questions or concerns that arise at home. 05/29 11:23 Order name: Strep; Complete Time: 11:47 kb 05/29 11:49 Order name: Throat Culture EDMS Administered Medications: No medications were administered Disposition: 16:17 Co-signature as Attending Physician, Pete Walls MD I agree with the assessment and kdr plan of care. Disposition: 05/29/18 12:42 Discharged to Home. Impression: Allergic rhinitis, unspecified. - Condition is Stable. - Discharge Instructions: Allergies, [id number]. - Medication Reconciliation Form, Thank You Letter, Antibiotic Education, Prescription Opioid Use form. - Follow up: Emergency Department; When: As needed; Reason: Worsening of condition. Follow up: Private Physician; When: 2 - 3 days; Reason: Recheck today's complaints, Continuance of care, Re-evaluation by your physician. - Notes: Use Flonase and Claritin Daily Increase fluid intake Follow up with PCP Signatures: Dispatcher [employer] Bridget Voss FNP-C FNP-Shania Graf RN RN aj1 Pete Walls MD MD kdr Pablo Dupont, FRANCHISE BUSINESS CONSULTANT FRANCHISE BUSINESS CONSULTANT em Yari Macias RN RN iw Corrections: (The following items were deleted from the chart) 12:58 12:42 05/29/2018 12:42 Discharged to Home. Impression: Allergic rhinitis, unspecified. em Condition is Stable. Forms are Medication Reconciliation Form, Thank You Letter, Antibiotic Education, Prescription Opioid Use. Follow up: Emergency Department; When: As needed; Reason: Worsening of condition. Follow up: Private Physician; When: 2 - 3 days; Reason: Recheck today's complaints, Continuance of care, Re-evaluation by your physician. kb
[2018-05-29 13:12] VITALS: TEMP 97.8
[2018-05-29 13:13] VITALS: BP 124/71; O2SAT 99
== END 2018-05-29 12:58 | disposition home or self-care (01) ==
LOC: ER 09:40
DX: J30.9 Allergic rhinitis, unspecified (principal)
CPT/HCPCS: 87070; 87081; 99281

== ENCOUNTER 2018-06-11 03:55 | Observation (INO) | payer OTHER ==
[2018-06-11] MEDS ORDERED: NA CHLORIDE 0.9% 1,000 ML ONE (04:31)
[2018-06-11] MEDS ORDERED: ASPIRIN 81 MG CHEWABLE TABLET ONE (04:31)
[2018-06-11] MEDS ORDERED: MORPHINE 4 MG/ML SYR ONE (04:32)
[2018-06-11] MEDS ORDERED: WATER FOR INJ,STERILE 10 ML ONE (04:32)
[2018-06-11] MEDS ORDERED: PANTOPRAZOLE 40 MG INJ ONE (04:32)
[2018-06-11] MEDS ORDERED: ONDANSETRON 4 MG/2 ML VIAL ONE (04:37)
[2018-06-11 04:43] LABS: Urine Blood 1+ (NEG); Urine Glucose NEGATIVE (NEG); Urine Protein NEGATIVE (NEG); Urine Specific Gravity 1.005 (1.005-1.030); Urine pH 5.5 (5.0-7.0)
[2018-06-11 05:15] LABS: Absolute Lymphocytes (CBC) 0.9 K/uL (0.7-4.9); Absolute Monocytes 0.4 K/uL (0.1-1.3); Absolute Neutrophil 4.3 K/uL (1.8-8.0); Basophils % 1.9 % (0-1.3); Eosinophils % 1.6 % (0-4.4); Hematocrit 45.2 % (36.0-45.0); Lymphocytes % 15.9 % (15.3-44.8); Monocytes % 6.7 % (3.3-12.3); RBC Red Blood Cell Count 5.29 M/uL (3.86-4.86)
[2018-06-11 05:20] LABS: Protime INR 1.06
[2018-06-11 05:38] LABS: ALT/SGPT 31 U/L (12-78); AST/SGOT 18 U/L (15-37); Albumin 3.5 g/dL (3.4-5.0); Alkaline Phosphatase 95 U/L (45-117); BUN Blood Urea Nitrogen 9 mg/dL (7-18); Bicarbonate 20 mmol/L (21-32); Bilirubin Direct 0.2 mg/dL (0-0.2); Bilirubin Total 0.6 mg/dL (0.2-1.0); Glucose Level 88 mg/dL (74-106); Lipase 264 U/L (73-393); NT PRO-BNP 55 pg/mL (<125); Potassium 3.9 mmol/L (3.5-5.1); Sodium Level 124 mmol/L (136-145); Troponin (Emerg Dept Use Only) < 0.02 ng/mL (0.0-0.045)
[2018-06-11] MEDS ORDERED: CEFTRIAXONE 1000 MG/VIAL ONE (06:03)
[2018-06-11] MEDS ORDERED: NA CHLORIDE 0.9% 50 ML IV ONE (06:03)
--- NOTE | 2018-06-11 07:05 | ER ---
Nurse's Notes [facility] Name: Priyanka Tinoco Age: 72 yrs Sex: Female : 1945 Arrival Date: 06/11/2018 Time: 04:00 Bed 7 Private MD: Lisa Nielson Diagnosis: Chest pain, unspecified;Hypo-osmolality and hyponatremia;Weakness;Dyspnea;Urinary tract infection, site not specified Presentation: 06/11 04:13 Presenting complaint: Patient states: Complaint of sore throat, bilateral ear pain, lp1 back pain, chest pain; States having congestion for a while now, making it hard to breath; Patient seen in ER for same symptoms a couple weeks ago. Transition of care: patient was not received from another setting of care. Onset of symptoms was June 11, 2018. Risk Assessment: Do you want to hurt yourself or someone else? Patient reports no desire to harm self or others. Initial Sepsis Screen: Does the patient meet any 2 criteria? No. Patient's initial sepsis screen is negative. Does the patient have a suspected source of infection? No. Patient's initial sepsis screen is negative. Care prior to arrival: None. 04:13 Method Of Arrival: Wheelchair lp1 04:13 Acuity: ANA MARIA 3 lp1 Triage Assessment: 08:11 Headache History: The patient has had previous headaches and this one is similar to tw2 previous episodes. General: Appears. Pain: Pain began 2-3 days ago. Also complains of decreased appetite, nausea. Historical: - Allergies: 04:23 Iodinated Contrast Media - IV Dye; lp1 04:23 Reglan; lp1 - Home Meds: 04:23 amlodipine 5 mg tab 1 tab once daily [Active]; buspirone 15 mg Oral tab take 1 1/2 tabs lp1 twice a day [Active]; Cipro 500 mg Oral tab 1 tab 2 times per day [Active]; clarithromycin 500 mg Oral tab 1 tab every 12 hours [Active]; Flagyl 500 mg Oral tab 1 tab 3 times per day [Active]; gabapentin Oral [Active]; lisinopril 10 mg Oral tab 1 tab once daily [Active]; naproxen 500 mg Oral tab 1 tab 2 times per day [Active]; pantoprazole 40 mg Oral TbEC 1 tab once daily [Active]; topiramate 25 mg Oral CSpX 3 cap at bedtime [Active]; Zofran Oral [Active]; - PMHx: 04:23 acid reflux; Anxiety; Arthritis; Hypertension; Migraines; lp1 - PSHx: 04:23 Cholecystectomy; Cataracts; lp1 - Immunization history:: Adult Immunizations up to date. - Social history:: Smoking status: Patient/guardian denies using tobacco. - Family history:: not pertinent. - Ebola Screening: : No symptoms or risks identified at this time. Screenin:20 Abuse screen: Denies threats or abuse. Denies injuries from another. Nutritional ca1 screening: No deficits noted. Tuberculosis screening: No symptoms or risk factors identified. Fall Risk None identified. Assessment: 04:20 General: Appears in no apparent distress. ill, Behavior is calm, cooperative, ca1 appropriate for age. Pain: Complains of pain in chest, ears, throat Pain currently is 7 out of 10 on a pain scale. Neuro: Level of Consciousness is awake, alert, obeys commands, Oriented to person, place, time, situation. Neuro: Reports dizziness. Cardiovascular: Heart tones S1 S2 present Capillary refill < 3 seconds Patient's skin is warm and dry. Respiratory: Reports shortness of breath cough that is non-productive, pain with cough Airway is patent Trachea midline Respiratory effort is even, unlabored, Respiratory pattern is regular, symmetrical, Breath sounds are coarse bilaterally. GI: Abdomen is round non-distended, Bowel sounds present X 4 quads. Abd is soft and non tender X 4 quads. Reports nausea. : No signs and/or symptoms were reported regarding the genitourinary system. EENT: Ear canal clear on left ear and right ear Throat is pink Reports nasal congestion. Derm: Skin is intact, is healthy with good turgor, Skin is pink, warm \T\ dry. Musculoskeletal: Circulation, motion, and sensation intact. Capillary refill < 3 seconds. 05:30 Reassessment: Patient appears in no apparent distress at this time. Patient and/or ca1 family updated on plan of care and expected duration. Pain level reassessed. Patient is alert, oriented x 3, equal unlabored respirations, skin warm/dry/pink. 06:50 Reassessment: Patient appears in no apparent distress at this time. Patient and/or ca1 family updated on plan of care and expected duration. Pain level reassessed. Patient is alert, oriented x 3, equal unlabored respirations, skin warm/dry/pink. Lab draw 2nd set of cultures. Antibiotic started. 07:21 Reassessment: Patient appears in no apparent distress at this time. No changes from tw2 previously documented assessment. Patient and/or family updated on plan of care and expected duration. Pain level reassessed. Patient is alert, oriented x 3, equal unlabored respirations, skin warm/dry/pink. Vital Signs: 04:17 BP 105 / 72; Pulse 77; Resp 18; Temp 97.9(O); Pulse Ox 98% on R/A; Weight 85.28 kg; lp1 Height 4 ft. 11 in. (149.86 cm); Pain 10/10; 05:30 BP 116 / 52; Pulse 59; Resp 17; Pulse Ox 97% on R/A; ca1 06:50 BP 102 / 54; Pulse 60; Resp 19; Pulse Ox 100% on R/A; ca1 07:24 BP 113 / 65; Pulse 66; Resp 18; Pulse Ox 99% on R/A; tw2 04:17 Body Mass Index 37.97 (85.28 kg, 149.86 cm) lp1 ED Course: 04:00 Patient arrived in ED. es 04:01 Lisa Nielson MD is Private Physician. es 04:02 Power Hernandez MD is Attending Physician. cody 04:17 Triage completed. lp1 04:18 Arm band placed on left wrist. lp1 04:20 Patient has correct armband on for positive identification. Placed in gown. Bed in low ca1 position. Call light in reach. Side rails up X2. cafeteria monitor on. Pulse ox on. NIBP on. Warm blanket given. 04:38 Jessica Sellers, RN is Primary Nurse. ak1 04:55 Radiology exam delayed due to Patient having labs and X-rays done at this time. kw1 04:59 X-ray completed. Portable x-ray completed in exam room. Patient tolerated procedure kw well. 05:00 XRAY Chest (1 view) In Process Unspecified. EDMS 05:00 Missed attempt(s): 22 gauge in right antecubital area. lt1 05:[address] via wheelchair. kw1 05:17 CT Chest Abdomen Pelvis W/O Contrast In Process Unspecified. EDMS 05:17 CT completed. Patient tolerated procedure well. Patient moved back from CT. kw1 05:17 Initial lab(s) drawn, by me, sent to lab. Inserted saline lock: 22 gauge in left ms forearm, using aseptic technique. Blood collected. 07:02 Allison Gibbs MD is Hospitalizing Provider. cody 07:13 Primary Nurse role handed off by Jessica Sellers RN tw2 07:13 Jennifer Palacios RN is Primary Nurse. tw2 08:12 No provider procedures requiring assistance completed. Patient admitted, IV remains in tw2 place. Administered Medications: 04:30 Drug: Aspirin Chewable Tablet 324 mg Route: PO; ca1 06:47 Follow up: Response: No adverse reaction ca1 05:20 Drug: NS 0.9% 1000 ml Route: IV; Rate: 75 ml/hr; Site: left forearm; ca1 05:22 Drug: ProTONIX 40 mg Route: IVP; Site: left forearm; ca1 06:48 Follow up: Response: No adverse reaction ca1 05:25 Drug: morphine 2 mg Route: IVP; Site: left forearm; ca1 06:48 Follow up: Response: No adverse reaction; Pain is decreased ca1 05:27 Drug: Zofran 4 mg Route: IVP; Site: left forearm; ca1 06:49 Follow up: Response: No adverse reaction; Nausea is decreased ca1 06:32 Drug: morphine 2 mg Route: IVP; Site: left forearm; ca1 06:47 Drug: Rocephin - (cefTRIAXone) 1 grams Route: IVPB; Infused Over: 30 mins; Site: left ca1 forearm; 07:20 Follow up: Response: No adverse reaction; IV Status: Completed infusion tw2 07:11 Drug: NS 0.9% 500 ml Route: IV; Rate: bolus; Site: left forearm; ca1 11:12 Follow up: Response: No adverse reaction; IV Status: Completed infusion; IV Intake: tw2 500ml Intake: 11:12 IV: 500ml; Total: 500ml. tw2 Outcome: 07:04 Decision to Hospitalize by Provider. cody 08:10 Admitted to Med/surg accompanied by tech, via wheelchair, room 424, with chart, Report tw2 called to ISSA Wise 08:10 Condition: stable 08:10 Instructed on the need for admit. 08:28 Patient left the ED. tw2 Signatures: Dispatcher [employer] Power Hernandez MD MD cha Salyer, Gely Varela ms Opal, Solange Jean Baptiste, RN RN lp1 Jessica Sellers RN RN ak1 Jennifer Palacios RN RN tw2 Li Esposito kw1 Rukhsana Dias RN RN ca1 Nicolas, Merna lt1 Corrections: (The following items were deleted from the chart) 06:04 06:02 Reassessment: Patient appears in no apparent distress at this time. Patient ca1 and/or family updated on plan of care and expected duration. Pain level reassessed. Patient is alert, oriented x 3, equal unlabored respirations, skin warm/dry/pink. Patient is alert/active/playful, equal unlabored respirations, skin warm/dry/pink. Patient states feeling better. ca1
--- NOTE | 2018-06-11 07:05 | EDPHYS ---
Physician Documentation [facility] Name: Priyanka Tinoco Age: 72 yrs Sex: Female : 1945 Arrival Date: 06/11/2018 Time: 04:00 Bed 7 Private MD: Lisa Nielson ED Physician Power Hernandez HPI: 06/11 04:16 This 72 yrs old Female presents to ER via Unassigned with complaints of coyd Headache, Ear Pain, Back Pain, Chest Pain, Congestion. Historical: - Allergies: 04:23 Iodinated Contrast Media - IV Dye; lp1 04:23 Reglan; lp1 - Home Meds: 04:23 amlodipine 5 mg tab 1 tab once daily [Active]; buspirone 15 mg Oral tab take 1 1/2 tabs lp1 twice a day [Active]; Cipro 500 mg Oral tab 1 tab 2 times per day [Active]; clarithromycin 500 mg Oral tab 1 tab every 12 hours [Active]; Flagyl 500 mg Oral tab 1 tab 3 times per day [Active]; gabapentin Oral [Active]; lisinopril 10 mg Oral tab 1 tab once daily [Active]; naproxen 500 mg Oral tab 1 tab 2 times per day [Active]; pantoprazole 40 mg Oral TbEC 1 tab once daily [Active]; topiramate 25 mg Oral CSpX 3 cap at bedtime [Active]; Zofran Oral [Active]; - PMHx: 04:23 acid reflux; Anxiety; Arthritis; Hypertension; Migraines; lp1 - PSHx: 04:23 Cholecystectomy; Cataracts; lp1 - Immunization history:: Adult Immunizations up to date. - Social history:: Smoking status: Patient/guardian denies using tobacco. - Family history:: not pertinent. - Ebola Screening: : No symptoms or risks identified at this time. ROS: 04:17 Constitutional: Negative for fever, chills, and weight loss, Eyes: Negative for injury, cody pain, redness, and discharge, ENT: Negative for injury, pain, and discharge, Neck: Negative for injury, pain, and swelling, Respiratory: Negative for shortness of breath, cough, wheezing, and pleuritic chest pain, Abdomen/GI: Negative for abdominal pain, nausea, vomiting, diarrhea, and constipation, : Negative for injury, bleeding, discharge, and swelling, MS/Extremity: Negative for injury and deformity, Skin: Negative for injury, rash, and discoloration, Neuro: Negative for headache, weakness, numbness, tingling, and seizure. 04:17 Cardiovascular: Positive for chest pain. 04:17 Back: Positive for pain at rest, pain with movement. Exam: 04:17 Constitutional: This is a well developed, well nourished patient who is awake, alert, cody and in no acute distress. Head/Face: Normocephalic, atraumatic. Eyes: Pupils equal round and reactive to light, extra-ocular motions intact. Lids and lashes normal. Conjunctiva and sclera are non-icteric and not injected. Cornea within normal limits. Periorbital areas with no swelling, redness, or edema. ENT: Nares patent. No nasal discharge, no septal abnormalities noted. Tympanic membranes are normal and external auditory canals are clear. Oropharynx with no redness, swelling, or masses, exudates, or evidence of obstruction, uvula midline. Mucous membranes moist. Neck: Trachea midline, no thyromegaly or masses palpated, and no cervical lymphadenopathy. Supple, full range of motion without nuchal rigidity, or vertebral point tenderness. No Meningismus. Chest/axilla: Normal chest wall appearance and motion. Nontender with no deformity. No lesions are appreciated. Cardiovascular: Regular rate and rhythm with a normal S1 and S2. No gallops, murmurs, or rubs. Normal PMI, no JVD. No pulse deficits. Respiratory: Lungs have equal breath sounds bilaterally, clear to auscultation and percussion. No rales, rhonchi or wheezes noted. No increased work of breathing, no retractions or nasal flaring. Abdomen/GI: Soft, non-tender, with normal bowel sounds. No distension or tympany. No guarding or rebound. No evidence of tenderness throughout. Back: No spinal tenderness. No costovertebral tenderness. Full range of motion. Skin: Warm, dry with normal turgor. Normal color with no rashes, no lesions, and no evidence of cellulitis. MS/ Extremity: Pulses equal, no cyanosis. Neurovascular intact. Full, normal range of motion. Neuro: Awake and alert, GCS 15, oriented to person, place, time, and situation. Cranial nerves II-XII grossly intact. Motor strength 5/5 in all extremities. Sensory grossly intact. Cerebellar exam normal. Normal gait. Psych: Awake, alert, with orientation to person, place and time. Behavior, mood, and affect are within normal limits. Vital Signs: 04:17 BP 105 / 72; Pulse 77; Resp 18; Temp 97.9(O); Pulse Ox 98% on R/A; Weight 85.28 kg; lp1 Height 4 ft. 11 in. (149.86 cm); Pain 10/10; 05:30 BP 116 / 52; Pulse 59; Resp 17; Pulse Ox 97% on R/A; ca1 06:50 BP 102 / 54; Pulse 60; Resp 19; Pulse Ox 100% on R/A; ca1 07:24 BP 113 / 65; Pulse 66; Resp 18; Pulse Ox 99% on R/A; tw2 04:17 Body Mass Index 37.97 (85.28 kg, 149.86 cm) lp1 MDM: 04:02 Patient medically screened. [facility] 04:19 Data reviewed: vital signs, nurses notes, lab test result(s), EKG, radiologic studies, [facility] CT scan, plain films. 06/11 04:14 Order name: Basic Metabolic Panel [facility] 06/11 04:14 Order name: CBC with Diff [facility] 06/11 04:14 Order name: LFT's [facility] 06/11 04:14 Order name: Magnesium; Complete Time: 06:26 [facility] 06/11 04:14 Order name: NT PRO-BNP; Complete Time: 06:26 [facility] 06/11 04:14 Order name: PT-INR; Complete Time: 06:26 [facility] 06/11 04:14 Order name: Troponin (emerg Dept Use Only); Complete Time: 06:26 [facility] 06/11 04:14 Order name: Lipase; Complete Time: 06:26 [facility] 06/11 04:14 Order name: Urine Culture [facility] 06/11 04:15 Order name: Basic Metabolic Panel; Complete Time: 06:26 [facility] 06/11 04:15 Order name: CBC with Automated Diff; Complete Time: 06:26 [facility] 06/11 04:15 Order name: Liver (Hepatic) Function; Complete Time: 06:26 EDMS 06/11 04:39 Order name: Urine Dipstick--Ancillary (enter results); Complete Time: 05:10 ag4 06/11 04:39 Order name: Blood Culture Adult (2) [facility] 06/11 04:14 Order name: XRAY Chest (1 view) [facility] 06/11 04:14 Order name: EKG; Complete Time: 04:15 [facility] 06/11 04:39 Order name: CT Chest Abdomen Pelvis W/O Contrast [facility] 06/11 04:39 Order name: Influenza Screen (a \T\ B); Complete Time: 06:26 [facility] 06/11 06:31 Order name: Osmolality, Serum [facility] 06/11 06:31 Order name: Urine Osmolality cody 06/11 06:31 Order name: Urine Sodium Random [facility] 06/11 04:14 Order name: Cardiac monitoring; Complete Time: 04:19 [facility] 06/11 04:14 Order name: EKG - Nurse/Tech; Complete Time: 04:19 [facility] 06/11 04:14 Order name: IV Saline Lock; Complete Time: 04:19 [facility] 06/11 04:14 Order name: Labs collected and sent; Complete Time: 04:20 [facility] 06/11 04:14 Order name: O2 Per Protocol; Complete Time: 04:20 [facility] 06/11 04:14 Order name: O2 Sat Monitoring; Complete Time: 04:20 [facility] 06/11 04:14 Order name: Urine Dipstick-Ancillary (obtain specimen); Complete Time: 04:19 [facility] 06/11 07:30 Order name: CONS Physician Consult EDMS Administered Medications: 04:30 Drug: Aspirin Chewable Tablet 324 mg Route: PO; ca1 06:47 Follow up: Response: No adverse reaction ca1 05:20 Drug: NS 0.9% 1000 ml Route: IV; Rate: 75 ml/hr; Site: left forearm; ca1 05:22 Drug: ProTONIX 40 mg Route: IVP; Site: left forearm; ca1 06:48 Follow up: Response: No adverse reaction ca1 05:25 Drug: morphine 2 mg Route: IVP; Site: left forearm; ca1 06:48 Follow up: Response: No adverse reaction; Pain is decreased ca1 05:27 Drug: Zofran 4 mg Route: IVP; Site: left forearm; ca1 06:49 Follow up: Response: No adverse reaction; Nausea is decreased ca1 06:32 Drug: morphine 2 mg Route: IVP; Site: left forearm; ca1 06:47 Drug: Rocephin - (cefTRIAXone) 1 grams Route: IVPB; Infused Over: 30 mins; Site: left ca1 forearm; 07:20 Follow up: Response: No adverse reaction; IV Status: Completed infusion tw2 07:11 Drug: NS 0.9% 500 ml Route: IV; Rate: bolus; Site: left forearm; ca1 11:12 Follow up: Response: No adverse reaction; IV Status: Completed infusion; IV Intake: tw2 500ml Disposition: 06/11/18 07:04 Hospitalization ordered by Allison Gibbs for Observation. Preliminary diagnosis are Chest pain, unspecified, Hypo-osmolality and hyponatremia, Weakness, Dyspnea, Urinary tract infection, site not specified. - Bed requested for Telemetry/MedSurg (observation). - Status is Observation. tw2 - Condition is Stable. - Problem is new. - Symptoms have improved. UTI on Admission? Yes Signatures: Dispatcher [employer] EDMS Jillian Engel RN RN Power Peralta MD MD cha Pena, Laura RN RN lp1 Jennifer Palacios RN RN tw2 Ashley Frias Cheryl, RN RN ca1 Corrections: (The following items were deleted from the chart) 04:49 04:16 Angio Aorta For Dissection+CT.RAD.BRZ ordered. [facility] EDIL 07:07 07:04 Hospitalization Ordered by Allison Gibbs MD for Observation. Preliminary cody diagnosis is Chest pain, unspecified; Hypo-osmolality and hyponatremia; Weakness; Dyspnea. Bed requested for Telemetry/MedSurg (observation). Status is Observation. Condition is Stable. Problem is new. Symptoms have improved. UTI on Admission? No. cody 07:41 07:07 06/11/2018 07:04 Hospitalization Ordered by Allison Gibbs MD for Observation. david Preliminary diagnosis is Chest pain, unspecified; Hypo-osmolality and hyponatremia; Weakness; Dyspnea; Urinary tract infection, site not specified. Bed requested for Telemetry/MedSurg (observation). Status is Observation. Condition is Stable. Problem is new. Symptoms have improved. UTI on Admission? Yes. cody 07:56 07:41 06/11/2018 07:04 Hospitalization Ordered by Allison Gibbs MD for Observation. dw Preliminary diagnosis is Chest pain, unspecified; Hypo-osmolality and hyponatremia; Weakness; Dyspnea; Urinary tract infection, site not specified. Bed requested for [facility] ER HOLD. Status is Observation. Condition is Stable. Problem is new. Symptoms have improved. UTI on Admission? Yes. eb 08:28 07:56 06/11/2018 07:04 Hospitalization Ordered by Allison Gibbs MD for Observation. tw2 Preliminary diagnosis is Chest pain, unspecified; Hypo-osmolality and hyponatremia; Weakness; Dyspnea; Urinary tract infection, site not specified. Bed requested for Telemetry/MedSurg (observation). Status is Observation. Condition is Stable. Problem is new. Symptoms have improved. UTI on Admission? Yes. dw
--- NOTE | 2018-06-11 07:34 | EKG ---
Test Date: 2018-06-11 Test Time: 04:31:12 Public Health Doctor: ERINN MEASUREMENT RESULTS: Intervals: Rate: 59 [place]: 160 QRSD: 80 QT: 406 QTc: 401 [place]: P: 20 [place]: 160 QRS: -19 T: 31 INTERPRETIVE STATEMENTS: Sinus bradycardia Otherwise normal ECG Compared to ECG 05/23/2018 10:42:53 Sinus rhythm no longer present Sinus arrhythmia no longer present Electronically Signed On 06-11-18 07:33:03 [employer] by Eriberto Samayoa
[2018-06-11] MEDS ORDERED: ONDANSETRON 4 MG/2 ML VIAL IV PRN (08:47)
[2018-06-11] MEDS ORDERED: ACETAMINOPHEN 500 MG TAB PO PRN (08:47)
[2018-06-11] MEDS ORDERED: NA CHLORIDE 0.9% 1,000 ML IV SCH (08:47)
[2018-06-11] MEDS ORDERED: MORPHINE 4 MG/ML SYR IV PRN (08:47)
[2018-06-11] MEDS ORDERED: SODIUM CHLORIDE 0.9% 10ML INJ IV PRN (08:47)
[2018-06-11] MEDS ORDERED: ASPIRIN EC 81 MG TAB PO SCH (09:00)
--- NOTE | 2018-06-11 09:05 | RAD REPORT ---
EXAM DESCRIPTION: Tawnya Single View06/11/2018 5:02 am CLINICAL HISTORY: Chest pain COMPARISON: May 2018 FINDINGS: The lungs appear clear of acute infiltrate. The heart is normal size IMPRESSION: No acute abnormalities displayed
--- NOTE | 2018-06-11 09:05 | RAD REPORT ---
EXAM DESCRIPTION: CT - Chest Abd Pelvis Wo Con - 06/11/2018 5:16 am CLINICAL HISTORY: Chest and abdominal pain COMPARISON: 2015 and 2016 cat scans TECHNIQUE: Computed axial tomography of the chest, abdomen and pelvis was obtained. Oral contrast wa s given. IV contrast was not requested. Preliminary report generated by virtual radiologic and review ed prior to dictation All CT scans are performed using dose optimization technique as appropriate and may include automated exposure control or mA/KV adjustment according to patient size. FINDINGS: The evaluation of mediastinum, antonette, vessels and solid organs is limited secondary to the lack of IV contrast administration No mediastinal or hilar lymphadenopathy is seen. A pleural effusion is not present. A pericardial effusion is not seen. A lung consolidation is not present. 4 millimeter left upper lobe nodule unchanged from the prior exa m likely benign. The liver, spleen, pancreas, adrenals and kidneys appear grossly normal. Spondylosis involves the lumbar spine resulting spinal stenosis Gallbladder is been removed There is no evidence of diverticulitis. The appendix is normal periumbilical hernia contains fat. The neck measures a couple centimeters. IMPRESSION: No acute abnormality is displayed
[2018-06-11 10:48] VITALS: BMI 38.0
[2018-06-11 12:55] VITALS: O2SAT 96
[2018-06-11] MEDS ORDERED: NA CHLORIDE 0.9% 500 ML IV ONE (13:48)
--- NOTE | 2018-06-11 14:37 | RAD REPORT ---
EXAM DESCRIPTION: USExtremhumberto Venous [employer] Ltd06/11/2018 2:31 pm CLINICAL HISTORY: left leg pain and swelling. COMPARISON: None. FINDINGS: Left common femoral, superficial femoral, popliteal and posterior tibial veins are compre ssible and demonstrate augmentation. Doppler demonstrates good flow. IMPRESSION: No evidence of deep venous thrombosis involving the left lower extremity.
[2018-06-11 14:50] VITALS: TEMP 97.9
--- NOTE | 2018-06-11 14:50 | P.SSS ---
Patient History Date of Service: 06/11/18 Reason for admission: Chest pain History of Present Illness: This is a 72-year-old female with significant past medical history who presents the ED complaining of having constitutional symptoms. Patient stated that she has been having some headache cough congestion body aches and chest pain that has been radiating to the back for past couple of days and having some generalized weakness. Patient stated that it has gotten progressively worse and thus she decided to come to the ER. Patient has been here several times in the hospital and the past for similar symptoms along with diverticulitis and had colon surgery done at that time. No complications were noted from the surgery at that time. Patient states that her chest pain right now is sharp and is on the left-hand side that goes to the back and radiates up her drop- off. Patient also complains of having cough and congestion along with body aches. Denies having any sick contacts and states that she has not had any fever at the house. Patient also denies having any nausea vomiting abdominal pain shortness of breath or any other associated symptoms at this time. Allergies Iodinated Contrast- Oral and IV Dye [Iodinated Contrast Media - IV Dye] Allergy (Verified 06/06/16 22:49) Shortness of breath metoclopramide HCl [From Reglan] Allergy (Verified 06/06/16 22:49) Shortness of breath Home Medications: Lisinopril 10 mg PO DAILY 06/11/18 Paroxetine HCl [Paxil] 30 mg PO DAILY 06/11/18 - Past Medical/Surgical History Has patient received pneumonia vaccine in the past: Yes Diabetic: No -: Hypertension -: Migraines -: GERD -: Depression with anxiety -: History of H. pylori gastritis -: Hiatal hernia -: Cataracts -: left breast cyst removal 1964 Psychosocial/ Personal History: She is of 55 years, has 3 children, she does not work. - Family History Mother -: Other (see notes) Notes: alzheimers Father -: Heart disease Notes: with mi Brother -: Cancer Notes: liver Sister -: Cancer Notes: gi cancer and hepatitis C - Social History Smoking Status: Never smoker Alcohol use: No CD- Drugs: No Caffeine use: Yes Place of Residence: Home Review of Systems 10-point ROS is otherwise unremarkable Physical Examination - Physical Exam General: Alert, In no apparent distress HEENT: Atraumatic, PERRLA, Mucous membr. moist/pink, EOMI, Sclerae nonicteric Neck: Supple, 2+ carotid pulse no bruit, No LAD, Without JVD or thyroid abnormality Respiratory: Clear to auscultation bilaterally, Normal air movement Cardiovascular: Regular rate/rhythm, Normal S1 S2 Gastrointestinal: Normal bowel sounds, No tenderness Musculoskeletal: No tenderness Integumentary: No rashes Neurological: Normal gait, Normal speech, Normal strength at 5/5 x4 extr, Normal tone, Normal affect Lymphatics: No axilla or inguinal lymphadenopathy - Studies Laboratory Data (last 24 hrs) 06/11/18 04:44: PT 12.5, INR 1.06 06/11/18 04:44: WBC 5.8, Hgb 15.3 H, Hct 45.2 H, Plt Count 188 06/11/18 04:44: Sodium 124 L, Potassium 3.9, BUN 9, Creatinine 1.09, Glucose 88 , Magnesium 2.0, Total Bilirubin 0.6, AST 18, ALT 31, Alkaline Phosphatase 95, Lipase 264 Microbiology Data (last 24 hrs): 06/11/18 04:44 Blood - Blood Anaerobic Blood Culture - Final 06/11/18 04:47 Nasopharnyx Influenza Type A Antigen Screen - Final 06/11/18 04:47 Nasopharnyx Influenza Type B Antigen Screen - Final - Diagnosis (Problem(s)) (1) Chest pain Current Visit: Yes Status: Acute Plan: Chest pain most likely atypical in nature. Most likely secondary to upper respiratory infection -troponin x2 negative. EKG with the significant changes. -cardiology consulted. Recommendation for outpatient echocardiogram and stress test -chest pain has resolved here in the hospital. (2) Upper respiratory infection Current Visit: Yes Status: Acute Plan: Upper respiratory infection most likely viral in nature -encouraged oral fluids Qualifiers: URI type: unspecified viral URI Qualified Code(s): J06.9 - Acute upper respiratory infection, unspecified (3) Hyponatremia Current Visit: Yes Status: Acute Plan: Hyponatremia possibly secondary to dehydration versus upper respiratory infection -received 1 L of bolus here in the hospital. Repeat sodium within normal limits (4) Depression with anxiety Onset Date: 06/07/16 Current Visit: No Status: Chronic Plan: Patient with frequent anxiety attack -follow up with primary care provider regarding starting a medication for Anxiety (5) Hiatal hernia with GERD Onset Date: 06/07/16 Current Visit: No Status: Chronic (6) Hypertension Onset Date: 06/07/16 Current Visit: No Status: Chronic Qualifiers: Hypertension type: essential hypertension Treatment Summary: Overall during the hospital stay patient remained stable Patient was initially admitted to the hospital for chest pain ACS rule out and hyponatremia. Troponin x2 was negative EKG with nonspecific changes. Cardiology cleared patient for discharge home with outpatient workup. Patient also received 1 L fluid. Hyponatremia improved. Patient then discharged home under stable condition. - Disposition Disposition: ROUTINE DISCHARGE Condition: GOOD Patient Discharge Instructions: Please f.u with PCP and Cardiology in 1 to 2 weeks. No New medication Diet: Regular Activity: Ad delmy
[2018-06-11 14:55] VITALS: BP 113/65
[2018-06-11 15:14] LABS: Potassium 4.1 mmol/L (3.5-5.1)
[2018-06-12] MEDS ORDERED: CEFTRIAXONE/SWI 1gm 1 GM/10 ML SYR IV SCH (06:00)
[2018-06-12] MEDS ORDERED: PANTOPRAZOLE 40 MG INJ IVP SCH (09:00)
[2018-06-12] MEDS ORDERED: LISINOPRIL 10 MG TAB PO SCH (09:00)
--- NOTE | 2018-06-12 12:38 | CON ---
Date of Consultation: 06/11/2018 The patient was seen on 06/11/2018 in the emergency room. Reason For Consultation: Chest pain. History Of Present Illness: Ms. Tinoco is a 72-year-old [place] woman with history of hyper tension, anxiety, gastroesophageal reflux disease, and migraine headache. No previous cardiac histor y. She came in with a sharp, stabbing chest pain that has persisted for about 6 to 8 hours that radi ated to her back. No nausea, vomiting, diaphoresis, PND, orthopnea, pedal edema, palpitation, or syn cope. By the time I saw her, she has already had negative CPKs, MBs, troponin and EKG as well as suellen st x-ray. She was found to have UTI. She was dehydrated. Sodium was 124. Her glucose was 259. Allergies: SHE IS ALLERGIC TO IODINE AND REGLAN. Review of Systems: Negative. Social History: Negative. Family History: Negative. Medications: At home include Paxil and lisinopril. Physical Examination: Vital Signs: Stable. She was afebrile. General: She appears to be anxious, but she was pain-free when I saw her. Normal sinus rhythm, afeb rile. HEENT: Negative. Neck: Supple with no bruit. Chest: Clear. Cardiac: Revealed a regular rhythm and rate. No murmurs, gallops, or rubs. Abdomen: Benign. Extremities: Revealed no clubbing, cyanosis, or edema. Diagnostic Data: Stated earlier. Impression And Plan: 1.Atypical chest pain, most likely musculoskeletal or gastroesophageal reflux related. Her pain rad iates to the back. No evidence of myocardial necrosis by EKG or labs. I feel comfortable with Ms. Katie ceballos going home and she needs to have a stress test, which considered to be done as an outpatient. The case was discussed with the patient and the family. The case was discussed with Dr. Sai looney. 2.Hypertension, well controlled. 3.Anxiety, on Paxil. 4.History of migraine headaches. 5.Elevated blood glucose, may need some fasting blood work down the road. 6.Urinary tract infection and hyponatremia, should be treated with IV fluid and antibiotics. CHANDAN/SOCORRO Voice ID: [id number] Report ID: [id number]
== END 2018-06-11 17:50 | disposition home or self-care (01) ==
LOC: ER 03:55 → ERHOLD 07:26 → 4TH 08:11
PROVIDERS: ADMIT Family Medicine; ATTEND Family Medicine
DX: R07.9 Chest pain, unspecified (principal); J06.9 Acute upper respiratory infection, unspecified; I10 Essential (primary) hypertension; K21.9 Gastro-esophageal reflux disease without esophagitis; K44.9 Diaphragmatic hernia without obstruction or gangrene; F41.8 Other specified anxiety disorders; E87.1 Hypo-osmolality and hyponatremia
CPT/HCPCS: 36415; 71045; 71250; 74176; 80048 ×2; 80076; 81003; 83690; 83735; 83880; 83930; 83935; 84300; 84484 ×3; 85025; 85610; 87040 ×2; 87086; 87088; 87804 ×2; 93005; 93971; 96361; 96365; 96375; 99285; C9113; G0378 ×2; J2405; J7030 ×2